=== PATIENT | female | born 1960 | race American Indian/Alaskan Native ===

== ENCOUNTER 2017-05-21 13:49 | Outpatient (CLI) | payer OTHER ==
--- NOTE | 2017-05-21 14:41 | Mammography Report ---
Bilateral mammogram: No previous studies available. CAD study utilized. Findings: Predominance adipose tissue bilaterally. Focal dense asymmetry measuring 7 mm in diameter outer right breast. Focal low density asymmetry subareolar area right breast. No microcalcifications benign axillary nodes Impression: Asymmetric densities right breast. Comparison with previous studies is recommended. If previous studies are available Spot mammogram and sonographic examination advised. BI-RADS CATEGORY: 0 = Needs additional imaging evaluation ACR BI-RADS MAMMOGRAPHIC CODES: 0 = Needs additional imaging evaluation; 1 = Negative; 2 = Benign; 3 = Probably benign; 4 = Suspicious; 5 = Malignant; 6 = Known biopsy-proven malignancy COMMENT: 1. Dense breast tissue, i.e., adenosis, fibrocystic changes, etc., may obscure an underlying neoplasm. 2. Approximately 10% of cancers are not detected with mammography. 3. A negative mammography report should not delay biopsy if a clinically suspicious mass is present. COMMENT: Patient follow-up letters are generated in [employer].
== END 2017-05-21 13:50 | disposition home or self-care (01) ==
LOC: MAMMO 13:49
PROVIDERS: ATTEND Hospitalist
DX: Z12.31 Encounter for screening mammogram for malignant neoplasm of breast (principal)
CPT/HCPCS: 77067; G0202

== ENCOUNTER 2017-06-05 03:48 | Emergency (ER) | payer OTHER ==
[2017-06-05 04:04] VITALS: BP 116/78
[2017-06-05 05:03] LABS: Basophils % (Auto) 1.6 % (0.0-1.8); Eosinophils % (Auto) 0.4 % (0.0-4.3); Hematocrit 35.6 % (30.3-42.9); Hemoglobin 11.7 gm/dl (10.1-14.3); Mean Corpuscular HGB Conc 33 % (30-34); Mean Corpuscular Hemoglobin 28 pg (28-32); Mean Corpuscular Volume 85 fl (79-97); Platelet Count 267 K/mm3 (140-440); Red Blood Count 4.16 M/mm3 (3.65-5.03); Red Cell Distribution Width 14.6 % (13.2-15.2); White Blood Count 3.4 K/mm3 (4.5-11.0)
[2017-06-05 05:14] LABS: Anion Gap 19 mmol/L; BUN/Creatinine Ratio 11.11; Blood Urea Nitrogen 10 mg/dL (7-17); Calcium 9.4 mg/dL (8.4-10.2); Carbon Dioxide 24 mmol/L (22-30); Glucose 116 mg/dL (65-100); Potassium 3.7 mmol/L (3.6-5.0); Sodium 140 mmol/L (137-145)
[2017-06-05] MEDS ORDERED: NACL 0.9% 1000 ML 1,000 ML IV ONE (08:43)
--- NOTE | 2017-06-05 08:43 | Emergency Department Report ---
ED ENT HPI - General Chief complaint: Sore Throat Stated complaint: DIFFICULTY IN SWALLOWING Time Seen by Provider: 06/05/17 08:11 Source: patient, RN notes reviewed Mode of arrival: Ambulatory Limitations: No Limitations - History of Present Illness Initial comments: PT c/o swelling around neck. Since 1800 yesterday. PT states she is unable to swallow solid food. PT states if she tries to swallow, she has horrible pain that radiates to her R ear. Pt states she needs to eat because she is a diabetic. PT also reports post nasal drainage. PT states she has had a cough for a month. PT reports productive cough. MD complaint: difficulty swallowing -: Gradual, days(s) Time: 18:00 Location: throat Severity scale (0 -10): 10 (when the pain hits.) Consistency: intermittent (pains, consstant swelling ) Improves with: none Worsens with: swallowing, eating, movement, other (palpation ) Associated Symptoms: cough, pain with swallowing, sore throat. denies: fever, toothache, discharge from ear - Related Data Previous Rx's Medication Instructions Recorded Last Taken Type Acetamin/Codeine 120-12Mg/5 ml 5 ml PO QID PRN #120 ml 06/05/17 Unknown Rx [Tylenol/Codeine 120-12 mg/5 ml] Azithromycin [Zithromax] 250 mg PO DAILY #6 tablet 06/05/17 Unknown Rx Benzonatate [Tessalon Perles] 100 mg PO Q8HR PRN #12 capsule 06/05/17 Unknown Rx Allergies Allergy/AdvReac Type Severity Reaction Status Date / Time cephalexin monohydrate Allergy Itching Verified 01/09/16 11:04 [From Keflex] Sulfa (Sulfonamide Allergy Hives Verified 01/09/16 11:04 Antibiotics) ED Dental HPI - General Chief complaint: Sore Throat Stated complaint: DIFFICULTY IN SWALLOWING Time Seen by Provider: 06/05/17 08:11 Source: patient Mode of arrival: Ambulatory Limitations: No Limitations - Related Data Previous Rx's Medication Instructions Recorded Last Taken Type Acetamin/Codeine 120-12Mg/5 ml 5 ml PO QID PRN #120 ml 06/05/17 Unknown Rx [Tylenol/Codeine 120-12 mg/5 ml] Azithromycin [Zithromax] 250 mg PO DAILY #6 tablet 06/05/17 Unknown Rx Benzonatate [Tessalon Perles] 100 mg PO Q8HR PRN #12 capsule 06/05/17 Unknown Rx Allergies Allergy/AdvReac Type Severity Reaction Status Date / Time cephalexin monohydrate Allergy Itching Verified 01/09/16 11:04 [From Keflex] Sulfa (Sulfonamide Allergy Hives Verified 01/09/16 11:04 Antibiotics) ED Review of Systems ROS: Stated complaint: DIFFICULTY IN SWALLOWING Other details as noted in HPI Comment: All other systems reviewed and negative Constitutional: denies: chills, fever ENT: ear pain (R ) Respiratory: cough (x months ). denies: shortness of breath, SOB with exertion , SOB at rest Gastrointestinal: nausea. denies: abdominal pain, vomiting Musculoskeletal: as per HPI (neck swelling ) ED Past Medical Hx - Past Medical History Previous Medical History?: Yes Hx Diabetes: Yes Hx Kidney Stones: Yes Hx Psychiatric Treatment: Yes ("nervous breakdown", depression) - Surgical History Past Surgical History?: Yes Additional Surgical History: tubal ligation, vein surgery to legs - Social History Smoking Status: Never Smoker Substance Use Type: None - Medications Home Medications: Home Medications Medication Instructions Recorded Confirmed Last Taken Type Acetamin/Codeine 120-12Mg/5 ml 5 ml PO QID PRN #120 ml 06/05/17 Unknown Rx [Tylenol/Codeine 120-12 mg/5 ml] Azithromycin [Zithromax] 250 mg PO DAILY #6 tablet 06/05/17 Unknown Rx Benzonatate [Tessalon Perles] 100 mg PO Q8HR PRN #12 capsule 06/05/17 Unknown Rx ED Physical Exam - General Limitations: No Limitations General appearance: alert, in no apparent distress - Head Head exam: Present: atraumatic, normocephalic, normal inspection, other (no sinus tenderness ) - Eye Eye exam: Present: normal appearance, PERRL, EOMI. Absent: conjunctival injection, nystagmus Pupils: Present: normal accommodation - ENT ENT exam: Present: normal orophraynx, mucous membranes moist, normal external ear exam - Expanded ENT Exam Expanded TM/Canal exam: Effusion: Right TM Mouth exam: Present: normal external inspection, tongue normal. Absent: drooling, trismus, muffled voice Teeth exam: Present: dental caries, other (gingivitis ). Absent: normal inspection Throat exam: Positive: normal inspection. Negative: tonsillar erythema, tonsillomegaly, tonsillar exudate, R peritonsillar mass, L peritonsillar mass - Neck Neck exam: Present: tenderness, full ROM, lymphadenopathy, other (swelling noted to R neck ). Absent: normal inspection, meningismus - Respiratory Respiratory exam: Present: normal lung sounds bilaterally. Absent: respiratory distress, wheezes, rales, rhonchi, stridor - Cardiovascular Cardiovascular Exam: Present: regular rate, normal rhythm, normal heart sounds - GI/Abdominal GI/Abdominal exam: Present: soft. Absent: tenderness, guarding, rebound, rigid - Extremities Exam Extremities exam: Present: normal inspection, full ROM - Back Exam Back exam: Present: normal inspection, full ROM. Absent: tenderness, CVA tenderness (R), CVA tenderness (L), muscle spasm, paraspinal tenderness, vertebral tenderness - Neurological Exam Neurological exam: Present: alert, oriented X3, normal gait - Psychiatric Psychiatric exam: Present: normal affect, normal mood - Skin Skin exam: Present: warm, dry, intact, normal color ED Course Vital Signs 06/05/17 03:59 Temperature 98.9 F Pulse Rate 68 Respiratory 20 Rate Blood Pressure 116/78 O2 Sat by Pulse 99 Oximetry - Reevaluation(s) Reevaluation #1: 06/05/17 08:50 PT aware of plan of care. Reevaluation #2: 06/05/17 10:25 PT aware of XR and CT results and plan of care. Reviewed strict return precautions with pt. Pt has no questions at this time. - Pulse Oximetry Interpretation Digit-Finger Initial Pulse Oximetry Readin Actions Taken: none ED Medical Decision Making - Lab Data Result diagrams: 06/05/17 04:37 06/05/17 04:37 Laboratory Results - last 24 hr 06/05/17 06/05/17 04:37 04:37 WBC 3.4 L RBC 4.16 Hgb 11.7 Hct 35.6 MCV 85 MCH 28 MCHC 33 RDW 14.6 Plt Count 267 Lymph % (Auto) 47.2 H Ness % (Auto) 15.7 H Eos % (Auto) 0.4 Baso % (Auto) 1.6 Lymph # 1.6 Ness # 0.5 Eos # 0.0 Baso # 0.1 Seg Neutrophils % 35.1 L Seg Neutrophils # 1.2 L Sodium 140 Potassium 3.7 Chloride 101.0 Carbon Dioxide 24 Anion Gap 19 BUN 10 Creatinine 0.9 Estimated GFR > 60 BUN/Creatinine Ratio 11.11 Glucose 116 H Calcium 9.4 - Radiology Data Radiology results: report reviewed CXR - NAP CT soft tissue neck- R enlarged tonsils, no abscess, R jugular lymph node enlarged - Differential Diagnosis christi's, tours captain, lymphadema Critical Care Time: No Critical care attestation.: If time is entered above; I have spent that time in minutes in the direct care of this critically ill patient, excluding procedure time. ED Disposition Clinical Impression: Cough, Right otitis media with effusion, Lymphadenopathy Pharyngitis Qualifiers: Pharyngitis/tonsillitis etiology: unspecified etiology Qualified Code(s): J02.9 - Acute pharyngitis, unspecified Disposition: TO HOME OR SELFCARE Is pt being admited?: No Does the pt Need Aspirin: No Condition: Stable Instructions: Lymphadenopathy (ED), Otitis Media (ED), Tonsillitis (ED), Acute Cough (ED) Additional Instructions: No driving or alcohol if you need to take Tylenol #3 for your pain Follow up with PCP in 3-5 days increase fluid intake return to the ED if you can not open your mouth, you are drooling or you are unable to swallow your own secretions or liquid Prescriptions: Acetamin/Codeine 120-12Mg/5 ml [Tylenol/Codeine 120-12 mg/5 ml] 5 ml PO QID PRN #120 ml PRN Reason: Pain Azithromycin [Zithromax] 250 mg PO DAILY #6 tablet Benzonatate [Tessalon Perles] 100 mg PO Q8HR PRN #12 capsule PRN Reason: Cough Referrals: PRIMARY CAREMD [Primary Care Provider] - 3-5 Days ALBANIA LANG MD [Staff Physician] - 3-5 Days [facility] [Outside] - 3-5 Days Time of Disposition: 10:32
--- NOTE | 2017-06-05 08:44 | XRay Report ---
FINAL REPORT EXAM: XR CHEST ROUTINE 2V HISTORY: COUGH/PAIN TECHNIQUE: PA and lateral chest radiographs PRIORS: None. FINDINGS: No mediastinal shift. Cardiac silhouette is not enlarged. No pneumothorax, effusion, or focal pulmonary opacity. No acute skeletal finding. IMPRESSION: No focal pulmonary opacity.
[2017-06-05] MEDS ORDERED: ZOFRAN IV ONE (09:49)
[2017-06-05] MEDS ORDERED: MORPHINE IV ONE (09:49)
--- NOTE | 2017-06-05 10:04 | Cat Scan Report ---
CT scan of neck with IV contrast: History: Swelling, dysphagia. Findings: There is enlargement noted of the right palatine tonsil. No abscess is identified. The airway appears open. There is single enlarged right jugular node identified. The submandibular salivary glands and the parotid glands appears unremarkable. No paravertebral mass. Several non-enlarged lymph nodes are noted in the neck bilaterally. Impression: Enlarged right palatine tonsils. No definite abscess.
== END 2017-06-05 10:43 | disposition home or self-care (01) ==
LOC: ED 03:48
DX: J02.9 Acute pharyngitis, unspecified (principal); H65.91 Unspecified nonsuppurative otitis media, right ear; R05 Cough; R59.1 Generalized enlarged lymph nodes; E11.9 Type 2 diabetes mellitus without complications; F32.9 Major depressive disorder, single episode, unspecified; Z88.2 Allergy status to sulfonamides; Z88.8 Allergy status to other drugs, medicaments and biological substances
CPT/HCPCS: 36415; 70491; 71020; 80048; 85025; 87116; 87430; 96361; 96374; 96375; 99284; J2270; J2405; J7030; Q9967

== ENCOUNTER 2017-08-13 09:11 | Outpatient (CLI) | payer OTHER ==
--- NOTE | 2017-08-13 11:08 | Mammography Report ---
RIGHT DIGITAL DIAGNOSTIC MAMMOGRAM: 08/13/17 09:11:00 CLINICAL: For clip placement immediately status post ultrasound biopsy. COMPARISON:07/28/17 FINDINGS: A biopsy clip is now identified within the upper outer mammographic mass. IMPRESSION: Concordant clip placement status post ultrasound biopsy. BI-RADS CATEGORY: 4--Suspicious Pathology pending.
--- NOTE | 2017-08-13 11:11 | Ultrasound Report ---
ULTRASOUND GUIDED NEEDLE CORE BIOPSY RIGHT BREAST WITH CLIP PLACEMENT: 08/13/17 CLINICAL: Right breast mass. COMPARISON :07/28/17 FINDINGS: The procedure was explained to the patient and informed consent was obtained. Ultrasound demonstrated a solid irregular hypoechoic mass at 10 o'clock 7 cm from the nipple. On the previous ultrasound, this technologist described the same lesion to be 3 cm from the nipple. I marked the breast with a felt tip marker and a time out was called. The skin was prepped with Betadine and anesthetized with 1% lidocaine. Needle core biopsy was performed through a tiny dermatotomy using ultrasound guidance, 2% lidocaine with epinephrine for deep anesthesia and a 14-gauge Achieve biopsy device. 3 cores were obtained and placed in formalin. A clip was deployed within the mass. The patient tolerated the procedure well and there were no apparent complications. Hemostasis was achieved with minimal pressure and a sterile dressing was applied. A two view mammogram demonstrated concordant placement of the clip. She left the department in good condition and was given instructions for wound care and followup. IMPRESSION: Uncomplicated ultrasound guided needle core biopsy of a right breast mass at 10 o'clock 7 cm from the nipple.
== END 2017-08-13 09:12 | disposition home or self-care (01) ==
LOC: SPVWC 09:11
PROVIDERS: ATTEND General Practice
DX: N63.10 Unspecified lump in the right breast, unspecified quadrant (principal)
CPT/HCPCS: 19083; 88305; G0206; 88342